=== PATIENT | male | born 1950 | race Caucasian/White ===

== ENCOUNTER 2023-11-09 10:12 | Outpatient (CLI) | payer MEDICARE, SELFPAY ==
[2023-11-09 18:41] LABS: Basophils # 0.1 K/mm3 (0-0.2); Basophils % 0.9 % (0.1-2.0); Eosinophils # 0.3 K/mm3 (0.0-0.4); Eosinophils % 3.7 % (0.1-12.0); Hematocrit 48.4 % (42.0-52.0); Hemoglobin 15.9 g/dL (14.1-18.0); Lymphocytes # 2.9 K/mm3 (0.7-4.5); Lymphocytes % 32.1 % (10-50); Mean Corpuscular HGB Conc 32.9 g/dL (31.8-35.4); Mean Corpuscular Volume 97.2 fl (80-94); Mean Platelet Volume 9.1 fl (7.4-10.4); Monocytes # 0.5 K/mm3 (0.1-1.0); Neutrophils # 5.1 K/mm3 (1.8-7.8); Neutrophils % 57.3 % (37.0-80.0); Platelet Count 235 K/mm3 (142-424); Red Blood Count 4.98 M/mm3 (4.60-6.20); Red Cell Distribution Width 15.3 % (11.5-17.5); White Blood Count 8.9 K/mm3 (4.8-10.8)
[2023-11-09 19:04] LABS: Alanine Aminotransferase 27 U/L (12-78); Albumin Level 4.3 g/dl (3.5-5.0); Albumin/Globulin Ratio 1.6 (1.1-1.8); Alkaline Phosphatase 63 U/L (38-126); Anion Gap 13.7 mEq/L (5-15); Aspartate Amino Transferase 30 U/L (17-59); Bilirubin,Total 1.2 mg/dl (0.2-1.3); Blood Urea Nitrogen 19 mg/dl (9-20); Calcium 9.5 mg/dl (8.4-10.2); Carbon Dioxide 27 mmol/L (22.0-30.0); Chloride 106 mmol/L (98-107); Chol/HDL Ratio 2.8 (1-3.5); Cholesterol 135 mg/dl (140-200); Estimated Glomerular Filt Rate 74 ml/min (>60); GFR (African American) 89 ML/MIN (>60); Globulin 2.7 g/dL (1.3-3.2); Glucose 82 mg/dl (74-100); HDL Cholesterol 49 mg/dl (40-60); Potassium 4.7 mmoL/L (3.5-5.1); Sodium 142 mmol/L (136-145); Triglycerides 97 mg/dl (30-150); VLDL Cholesterol 19 mg/dL (0-40)
[2023-11-09 19:18] LABS: Hemoglobin A1C 4.7 % (4.0-6.0)
[2023-11-09 19:36] LABS: Prostate Specific Ag Screen 1.3 ng/ml (0.0-4.0); Thyroid Stimulating Hormone 2.02 uIU/mL (0.465-4.68)
[2023-11-09 21:27] LABS: 25-OH Vitamin D, Total 39.2 ng/mL (30-100)
[2023-11-10 09:33] LABS: HIV (1&2) Antibody Rapid NON REACTIVE
[2023-11-10 09:39] LABS: Vitamin B12 278 pg/mL (239-931)
[2023-11-11 07:42] LABS: HCV Ab Non Reactive (Non Reactive)
== END 2023-11-09 23:59 | disposition home or self-care (01) ==
LOC: LAB.DROPOF 11-10 10:12
PROVIDERS: Visit Provider Family Medicine
DX: R97.20 Elevated prostate specific antigen [PSA] (principal); E78.00 Pure hypercholesterolemia, unspecified; E55.9 Vitamin D deficiency, unspecified; R73.09 Other abnormal glucose; D75.89 Other specified diseases of blood and blood-forming organs; T50.B95A Adverse effect of other viral vaccines, initial encounter; R53.83 Other fatigue; Z68.22 Body mass index [BMI] 22.0-22.9, adult; Z72.0 Tobacco use
CPT/HCPCS: 80050; 80053; 80061; 82306; 82607; 83036; 84443; 85025; G0103

== ENCOUNTER 2023-11-28 14:43 | Outpatient (CLI) | payer MEDICARE, SELFPAY ==
--- NOTE | 2023-11-28 14:43 | CT_ITS ---
FINAL REPORT TECHNIQUE: Thin section axial images were obtained from the lung apices to the upper abdomen by computed tomography. Reformatted images were obtained and reviewed. This study was performed with techniques to keep radiation doses al low as reasonably achievable (ALARA). Individualized dose reduction techniques using automated exposure control or adjustment of mA and/or kV according to the patient's size were employed. CLINICAL HISTORY: lung cancer screening. Smokes 1.5-2 PPD x55 yrs. Exposure to second hand smoke. FINDINGS: CHEST CT LOW DOSE CTDI vol (mGy): 2.90 DLP (mGy-cm): 103.94 There is no axillary adenopathy. There is no mediastinal or hilar mass or adenopathy. Mild coronary artery calcifications are noted. The heart is normal in size. There is no pericardial or pleural effusion. There is mild emphysema and mild pulmonary scarring. Lung window images demonstrate several calcified granulomas. There are several small nodules measuring 5 mm or less. In the left lung apex is a 5 mm nodule seen on image 16. There is a 4 mm nodule near the minor fissure on image 46. Limited images of the upper abdomen are unremarkable. IMPRESSION: Lung-RADS category 2. Recommend 12 month follow up low dose chest CT. Reviewed, Interpreted and Dictated by Rodolfo Nguyen III, MD Transcribed by Emily Smith Authenticated and [facility]
== END 2023-11-28 23:59 | disposition home or self-care (01) ==
LOC: RAD 14:43
PROVIDERS: PCP Family Medicine; Visit Provider Family Medicine
DX: Z87.891 Personal history of nicotine dependence (principal)
CPT/HCPCS: 71271

== ENCOUNTER 2024-06-13 14:50 | Outpatient (CLI) | payer MEDICARE, SELFPAY ==
[2024-06-13 15:30] VITALS: PULSE 63; PULSE 67
[2024-06-13] MEDS: ALBUTEROL 0.083% 2.5 MG/3 ML NEB IH (15:30)
== END 2024-06-13 23:59 | disposition home or self-care (01) ==
LOC: RT 14:51
PROVIDERS: PCP Family Medicine; Visit Provider Internal Medicine Pulmonary Disease
DX: R06.09 Other forms of dyspnea (principal)
CPT/HCPCS: 94060; 94618; 94640; 94726; 94729; J7613

== ENCOUNTER 2024-11-29 14:46 | Outpatient (CLI) | payer MEDICARE, SELFPAY ==
--- OUTSIDE RECORDS SUMMARY | 2024-11-29 14:50 | XMS_ITS | Clinical Summary ---
Author Organization [facility] Address [address] [place] [address] Phone Care Team Providers Care Fire Sprinkler Service Technician Name Role Phone Shankar Medina MD Primary Care Provider [phone] Allergies No known active allergies Medications budesonide-glycopyr -formoterol (BREZTRI AEROSPHERE) 160-9-4.8 mcg/actuation Inhl HFA Aerosol InhalerIndications: COPD, moderate (HCC) Inhale 2 Puffs into the lungs 2 times daily. 10.7 g 11 3 Active nicotine (NICODERM CQ) 21 mg/24 hr TD Patch 24 hrIndications:Cigar ette nicotine dependence with other nicotine-induced disorder Place 1 Patch onto the skin every 24 hours. 30 Patch 1 3 Active atorvastatin (LIPITOR) 20 mg Oral TabletIndications:M ixed hyperlipidemia Take 1 Tablet by mouth daily. 90 Tablet 3 3 Active Active Problems Patient Care Coordination No te Formatting of this note migh t be different from the original. Care gap audit completed by Aleksandra Hidalgo RN on 02/11/2020. Problem Noted Date Diagnosed Date COPD, moderate 02/14/2023 Screening for colon cancer 06/03/2018 Mixed hyperlipidemia 06/02/2018 Overview (02/15/2023): Atorvastatin 20 mg daily Vitamin D deficiency 06/02/2018 Advanced care planning/counseling discussion 03/2019 Overview (06/02/2018): No living will or advanced directive. Full code but doesn't want prolonged ventilator. Doesn't know if he wants prolonged feeding tube or not. Tobacco abuse 01/04/2014 Family history of cardiovascular disease 014 Mood disorder 01/04/2014 Resolved Problems Problem Noted Date Diagnosed Date Resolved Date Right shoulder pain 01/04/2014 02/15/20 23 Pain, dental 01/04/2014 02/14/2023 Immunizations Immunization Administration Dates Next Due Tdap 04/17/2015 Surgical History Surgery Date Site/Laterality Comments EAR SURGERY 13 busted TM Medical History Medical History Date Comments Shoulder pain Depression Family History Medical History Relation Name Comments Heart Disease Brother 2 Lonell Early Brother 3 Sofia MVA Alcohol Abuse Brother 4 Osmel Liver Cancer Brother 4 Osmel throat Heart Attack Brother 5 Alcohol Abuse Brother 6 Alcohol Abuse Brother 7 Alcohol Abuse Father Cirrhosis Father Diabetes Mother Heart Attack Mother had previous Heart Disease Mother Heart Disease Sister 7 Denise Cataracts Sister 8 Yola Diabetes Sister 8 Yola High Blood Pressure Sister 8 Yola Relation Name Status Comments Brother 1 Alive Brother 2 Lonell Brother 3 Sofia Brother 4 Osmel Brother 5 Brother 6 Brother 7 Father Maternal Grandfather Maternal Grandmother dennis Mother Paternal Grandfather Paternal Grandmother Sister 1 [place] Sister 2 Lexie Sister 3 Alive Sister 4 Alive Sister 5 Alive Sister 6 Alive Sister 7 Denise Sister 8 Yola Social History Tobacco Use Types Packs/Day Years Used Date Smoking Tobacco: Every Day Cigarettes 3 45 Smokeless Tobacco: Never Tobacco Cessation:Ready to Q uit: Not Asked; Counseling Given: Not Answered Alcohol Use Standard Drinks/Week Comments No 0 (1 standard drink = 0.6 oz pur e alcohol) PHQ-2 Answer Date Recorded PHQ-2 Total Score 2 02/14/2023 Sexually Active Control Partners Comments Yes Female Sex and Gender Information Value Date Recorded Sex Assigned at Not on file Legal Sex Male 9:24 PM EDT Gender Identity Not on file Sexual Orientation Not on file Obstetrics History Last Filed Vital Signs Vital Sign Reading Time Taken Comments Blood Pressure 140/90 02/14/2023 3:49 PM EDT Pulse 61 02/14/2023 3:49 PM EDT Temperature 36.7 C (98.1 F) 02/14/2023 3:49 PM EDT Respiratory Rate 16 02/14/2023 3:49 PM EDT Oxygen Saturation 99% 02/14/2023 3:49 PM EDT Inhaled Oxygen Concentration - - Weight 59.9 kg (132 lb) 02/14/2023 3:49 PM EDT Height 160 cm (5' 3 ) 02/14/2023 3:49 PM EDT Body Mass Index 23.38 02/14/2023 3:49 PM EDT Plan of Treatment Health Maintenance Due Date Last Done Comments Pneumococcal Vaccine 50+ (1 of 2 - PCV) 1971 Colonoscopy 1997 FIT 1997 Sigmoidoscopy 1997 Virtual Colonography 1997 Zoster (1 of 2) 2002 RSV or 60+ (1 - Ris k 60-74 years 1-dose series) 2012 AAA Screening 2017 Low Dose Lung Cancer Screening 07/18/2019 07/18/2018 Cologuard 06/28/2021 06/28/2018, 06/28/2018 Colon Cancer Screening 06/28/2021 COVID-19 Vaccine (3 - 2023-2 5 season) 2024 11/04/2020, 10/14/2020 Wellness Exam Medicare 02/15/2024 02/14/2023 Influenza Vaccine (#1) 2025 DTaP/TDaP/Td (2 - Td or Tdap) 04/17/2025, 07/28/1996 Hepatitis C Screening Completed 02/08/2014 Hepatitis B Vaccine Aged Out No longe r eligible based on patient's age to complete this topic Meningococcal B Vaccine Aged Out No l onger eligible based on patient's age to complete this topic Goals Goal Patient Goal Type Associated Problems Recent Progress Patient-Stated? Author Maintain a healthy diet, exercise regularly and maintain an ideal body weight General No Iman Zamarripa RMA Stay Tobacco Free Lifestyle No Iman Zamarripa RMA Procedures Procedure Name Priority Date/Time Associated Diagnosis Comments CT LUNG CANCER SCREENING LOW DOSE Routine 07/18/2018 1:57 PM EST Cigarette nicotine dependence without complication COLOGUARD Routine 06/28/2018 4:00 PM EST Screening for colon cancer Screening for malignant neoplasm of the rectum Screening for malignant neoplasm of colon ACUTE HEPATITIS PANEL Routine 02/08/2014 8:56 AM EDT Tattoos Preventative health care from Last 3 Months or Most Recently Relevant to Health Maintenance Results * CT LUNG CANCER SCREENING LOW DOSE (07/18/2018 1:57 PM EST) Anatomical Region Laterality Modality Lung Computed Tomogra phy 07/18/2018 1:57 PM EST Impressions 07/18/2018 2:15 PM EST Lung cancer screening study as described Narrative 07/18/2018 2:15 PM EST CLINICAL HISTORY: F17.210-Nicotine dependence, cigarettes, [id number]-82-CM. Asymptomatic patient meeting NCCN high risk criteria for lung screening. COMPARISON: None. TECHNIQUE: Noncontrast helical, low dose CT chest per standard department protocol on 07/18/2018 1:57 PM. FINDINGS: There is mild emphysema without evidence of a suspicious pulmonary nodule or focal consolidation. Filling defects in the trachea have the appearance of mucus. There is no pneumothorax or pleural effusion. The heart size and pulmonary vascularity are normal and there is no pericardial effusion. Coronary artery calcifications are mild. Followup code: X Category 1: Negative: No nodule or definitely benign nodule(s) Continued annual low-dose screening CT scan suggested if age <78. Procedure Note Del Albert MD - 07/18/2018 CLINICAL HISTORY: F17.210-Nicotine dependence, cigarettes, [id number]-[id number]-CM. Asymptomatic patient meeting NCCN high riskcriteria for lung screening. COMPARISON: None. TECHNIQUE: Noncontrast helical, low dose CT chest per standarddepartment protocol on 07/18/2018 1:57 PM. FINDINGS: There is mild emphysema without evidence of a suspiciouspulmonary nodule or focal consolidation. Filling defects in the trachea have the appearance of mucus. There is no pneumothorax or pleural effusion. Theheart size and pulmonary vascularity are normal and there is no pericardialeffusion. Coronary artery calcifications are mild. Followup code: X Category 1: Negative: No nodule or definitely benign nodule(s)Continued annual low-dose screening CT scan suggested if age <78. IMPRESSION: Lung cancer screening study as described us Jaylyn Maggie Culp MD IM CT ORDERABLES F inal Result * COLOGUARD (06/28/2018 4:00 PM EST) COLOGUARD CLINICAL REPORT Negative Not Applicable Preventice Comment: A negative result indicates a low likelihood that a colorectal cancer (CRC) or an advanced adenoma (adenomatous polyps with more advanced pre-malignant features) is present. The chance that a person with a negative Cologuard test has a colorectal cancer is less than 1 in 1500 (negative predictive value >99.9%) or has an advanced adenoma is less than 5.3% (negative predictive value 94.7%). These data are based on a prospective cross-sectional screening study of 10,000 individuals at average risk for colorectal cancer who were screened with both Cologuard and colonoscopy. (Senia Salazar. et al, N Engl J Med 2014;370(14):2538-7300) COLOGUARD RE-SCREENING RECOMMENDATION: Periodic routine colorectal cancer screening is an important part of preventive healthcare for asymptomatic persons at average risk for colorectal cancer. Following a negative Cologuard result, the [place] Cancer Society and U.S. Multi-Society Task Force screening guidelines recommend a Cologuard re-screening interval of 3 years. References: [place] Cancer Society (ACS). Colorectal cancer prevention and early detection. [place], [place]: [place] [employer] Society; [updated 2015Sep 13]. https://www.cancer.org/cancer/gjdkr-rtmjbt-yngcee/vkaaqauyy-crbaorapg-fkccwjy/ac s-rec ommendations.html. Accessed January 20, 2018; Ned PEARCE, Maricruz CERVANTES, Araceli DyerK, Colorectal Cancer Screening: Recommendations for Physicians and Patients from the U.S. Multi-Society Task Force on Colorectal Cancer Screening, Am J Gastroenterology 2017; 112:1199-2665. Test Type: Composite algorithmic analysis of stool DNA-biomarkers with hemoglobin immunoassay. Quantitative values of individual biomarkers are not reportable and are not associated with individual biomarker result reference ranges. Precautions and Limitations: Cologuard is intended for colorectal cancer screening of adults of either sex, 50 years or older, who are at typical average-risk for colorectal cancer. A negative Cologuard test result does not guarantee the absence of colorectal cancer or advanced adenoma (pre-cancer). Patients with a negative Cologuard test result should be advised to continue participating in a colorectal cancer screening program. Cologuard may produce a positive result, even though a colonoscopy may not find colorectal cancer or precancerous polyps. The performance of Cologuard has been established in a cross sectional study (i.e., single point in time). Performance has not been evaluated in adults who have been previously tested with Cologuard or in patients less than 50 years of age. Cologuard has been approved for use by the U.S. FDA. Cologuard performance data in a 10,000 patient pivotal study using colonoscopy as the reference method can be accessed at the following location: www.[employer].COM/results. Additional description of the Cologuard test process, warnings and precautions can be found at www.cologuardtest.com. Rx Only. Stool specimen (specimen) 06/28/2018 4:00 PM EST 06/30/2018 12:15 PM EST us Jaylyn Culp MD EXACT SCIENCE - ORD ERABLES Final Result Performing Organization Address City/[facility]/ZIP Co de Phone Number [employer] [address] [place] [address] * ACUTE HEPATITIS PANEL (02/08/2014 8:56 AM EDT) Hep Bs Ag Negative Negative [facility] Hep B Core IgM Negative Negative [facility] Hep A IgM Negative Negative [facility] Hep C Ab Negative Negative [facility] Blood specimen (specimen) UPPER LIMB STRUCTURE / Unknown 02/08/2014 8:56 AM EDT 02/08/2014 4:49 PM EDT us Jaylyn Culp MD CHEMISTRY ORDERABLE S Edited Result - Final Performing Organization Address [facility]/ZIP Co de Phone Number [facility] [address] [place] [address] from Last 3 Months or Most Recently Relevant to Health Maintenance Insurance [employer] Member Subscriber Plan / Payer (Ef fective 2017-Present) Name:Rodolfo Guillermo Relation to Subscriber:Self Name:Eagle Rodolfo Carlos Payer ID:Not on file Group ID:Not on file Type:Not on file Address: [id number] [place] Care Teams Fire Sprinkler Service Technician Relationship Specialty Start Date End Date Shankar Medina MD [address] [place] [address] [place] [address] PCP - General Family Medicine 02/14/23
--- NOTE | 2024-11-29 15:00 | CT_ITS ---
FINAL REPORT CLINICAL HISTORY: lung cancer screening, current smoker, 2 packs per day x 50 yrs. exposure to asbestos & second hand smoke COMPARISON: 11/28/2023 FINDINGS: CT CHEST LOW DOSE SCREENING HISTORY: Screening exam for lung cancer. 74-year-old male, current smoker, 004-gbgp-ctrh history. DOSE: CTDI vol: 2.90 mGy, DLP: 110.46 mGy*cm TECHNIQUE: Axial CT without IV contrast administration using low dose protocol. This study was performed with techniques to keep radiation doses as low as reasonably achievable, (ALARA). Individualized dose reduction techniques using automated exposure control or adjustment of mA and/or kV according to the patient's size were employed. No acute lung disease is present. There is a 5 mm nodule in the left lung apex, best seen on image #17 of series 3, stable when compared to the prior exam. There is a 4 mm nodule near the minor fissure, best seen on image #50 of series 3, also stable. There is an oval irregular density in the right lateral midlung near the minor fissure, best seen on image #32, that likely represents scar, also stable since the prior exam. No pleural or pericardial effusion is seen. No adenopathy or mass lesion is present. IMPRESSION: No evidence of lung cancer LUNG RADS CATEGORY 2 RECOMMENDATION: 12 month LDCT follow up Reviewed, Interpreted and Dictated by Rodolfo Tang MD Transcribed by Veronica Lyn Authenticated and [facility]
== END 2024-11-29 23:59 | disposition home or self-care (01) ==
LOC: RAD 14:47
PROVIDERS: PCP Family Medicine; Visit Provider Internal Medicine Pulmonary Disease
DX: F17.210 Nicotine dependence, cigarettes, uncomplicated (principal); Z12.2 Encounter for screening for malignant neoplasm of respiratory organs
CPT/HCPCS: 71271